=== PATIENT | female | born 1975 | race Two or more races ===

== ENCOUNTER 2017-01-02 23:20 | Emergency (ER) | payer BC, OTHER ==
[~2017-01-02] VITALS: Ht 160 cm; Wt 72.6 kg
[2017-01-03] MEDS ORDERED: METFORMIN HCL ER 500 MG TABLET (00:11)
[2017-01-03] MEDS ORDERED: LEVOTHYROXINE 25 MCG TABLET (00:11)
--- NOTE | 2017-01-03 00:30 | NUR ---
Pt to room c/o general rash to body. Pt seen by Dr. Armstrong. Pt stable for discharge per MD. Pt given ACI. Pt verbalized understanding of dc instructions. Pt ambulated out of er with steady gait and ride home
[2017-01-03 01:04] VITALS: BP 122/85
== END 2017-01-03 00:30 | disposition home or self-care (01) ==
LOC: ER 23:23
DX: S40.862A Insect bite (nonvenomous) of left upper arm, initial encounter (principal); S40.861A Insect bite (nonvenomous) of right upper arm, initial encounter; E11.9 Type 2 diabetes mellitus without complications; W57.XXXA Bitten or stung by nonvenomous insect and other nonvenomous arthropods, initial encounter; Y93.89 Activity, other specified; Y92.9 Unspecified place or not applicable; Y99.9 Unspecified external cause status
CPT/HCPCS: A4663

== ENCOUNTER 2018-06-14 18:21 | Emergency (ER) | payer BC ==
[~2018-06-14] VITALS: Ht 160 cm; Wt 72.6 kg
[~2018-06-14 18:21] MED LIST: LEVOTHYROXINE 25 MCG TABLET; METFORMIN HCL ER 500 MG TABLET
[2018-06-14 19:27] LABS: BASOPHILS % (AUTO) 0.6 % (0.0-2.0); EOSINOPHILS # (AUTO) 0.1 K/uL (0.0-0.7); EOSINOPHILS % (AUTO) 1.2 % (0.0-7.0); HEMATOCRIT 39.9 % (31.2-41.9); LYMPHOCYTES # (AUTO) 2.2 K/uL (20.0-40.0); LYMPHOCYTES % (AUTO) 31.9 % (20.5-51.5); MEAN CORPUSCULAR HEMOGLOBIN 32.4 uug (24.7-32.8); MEAN CORPUSCULAR HGB CONC 35 g/dL (32.3-35.6); MEAN CORPUSCULAR VOLUME 92.3 fL (75.5-95.3); MONOCYTES # (AUTO) 0.3 K/uL (2.0-10.0); NEUTROPHILS # (AUTO) 4.2 K/uL (1.8-8.9); NEUTROPHILS % (AUTO) 62.3 % (38.5-71.5); PLATELET COUNT (AUTO) 302 K/uL (179-408); RED BLOOD CELL COUNT(AUTO) 4.32 MIL/uL (3.63-4.92); WHITE BLOOD COUNT (AUTO) 6.8 K/uL (3.8-11.8)
[2018-06-14 19:32] LABS: *URINE HCG, QUAL NEGATIVE (NEGATIVE)
[2018-06-14 19:36] LABS: CREATININE 0.8 mg/dL (0.6-1.3); POTASSIUM 3.6 mmol/L (3.5-5.1)
[2018-06-14 19:41] LABS: BILIRUBIN,DIRECT 0.2 mg/dL (0.0-0.2); BILIRUBIN,TOTAL 0.7 mg/dL (0.2-1.0); TOTAL PROTEIN, SERUM 7.9 g/dL (6.4-8.2)
[2018-06-14] MEDS ORDERED: OXYCODONE/APAP 5-325 MG TABLET PO ONE (20:45)
--- NOTE | 2018-06-14 21:29 | NUR ---
Patient discharged to home in stable conditon. Written and verbal after care instructions given. Patient verbalizes understanding of instructions. Pt ambulated out of ER in steady gait with . All belongings with pt. VSS. NAD noted. Pt feels much better.
[2018-06-14 21:34] VITALS: BP 127/81
== END 2018-06-14 21:30 | disposition home or self-care (01) ==
LOC: ER 18:24
DX: R53.1 Weakness (principal); J37.0 Chronic laryngitis; R09.89 Other specified symptoms and signs involving the circulatory and respiratory systems; R05 Cough; M21.70 Unequal limb length (acquired), unspecified site; Z79.899 Other long term (current) drug therapy
CPT/HCPCS: 36415; 70030-TC; 84703; 85025; 85730; 93005; A4663